=== PATIENT | female | born 1995 | race African-American/Black ===

== ENCOUNTER 2025-03-28 09:13 | Emergency (ER) | payer MEDICAID ==
[~2025-03-28] VITALS: Ht 162.6 cm; Wt 70.3 kg
[2025-03-28 09:25] VITALS: BP 114/60; PULSE 131; RESP 18; TEMP 99.3; O2SAT 98
[2025-03-28] MEDS ORDERED: NS 1000ML 1,000 ML ONE ×2 (09:39→10:14)
[2025-03-28] MEDS: NS 1000ML 1,000 ML STA ×2 (09:42→10:18)
[2025-03-28 09:48] LABS: BASOPHIL # 0.0 10^3/uL (0.0-0.1); BASOPHIL % 0.1 % (0.1-1.2); EOSINOPHIL # 0.1 10^3/uL (0.0-0.2); EOSINOPHIL % 0.6 % (0.0-5.0); HEMATOCRIT(ML) 27.4 % (36.0-46.0); IG % 0.70 % (0.00-0.50); LYMPHOCYTES # 1.63 10^3/uL1 (1.0-4.8); LYMPHOCYTES % 8.0 % (24.0-44.0); MEAN CORP HGB 20.4 pg (26-34); MEAN CORP HGB CONCENTRATION 29.6 g/dL (33-36.5); MEAN CORP VOLUME 69.0 fL (78-100); MONOCYTES # 1.4 10^3/uL (0.3-0.8); MONOCYTES % 6.7 % (5.0-12.0); NEUTROPHIL # 17.0 10^3/uL (1.8-7.7); NEUTROPHILS % 83.9 % (41.0-85.0); RED BLOOD CELL 3.97 10^6/uL (4.00-5.20); RED CELL DISTRIBUTION WIDTH 20.1 % (11.5-14.5); WHITE BLOOD CELL 20.3 10^3/uL (4.5-11.0)
[2025-03-28 10:01] LABS: LEUKOCYTE ESTERASE ,URINE NEGATIVE (NEGATIVE); NITRATE,URINE NEGATIVE (NEGATIVE)
[2025-03-28 10:04] LABS: INR 1.0; PROTHROMBIN PROTIME 10.1 SEC (9.3-11.6)
[2025-03-28 10:05] LABS: APPEARANCE,URINE CLOUDY; UA COLOR RED
[2025-03-28 10:07] LABS: UA COMMENT YES
[2025-03-28] MEDS ORDERED: NS 100ML 100 ML IV ONE (10:14)
[2025-03-28] MEDS ORDERED: OFIRMEV 100 ML IV ONE (10:15)
[2025-03-28 10:16] LABS: ALANINE AMINOTRANSFERASE(ML) 16 U/L (12-78); ALBUMIN(ML) 2.8 g/dL (3.4-5.0); CREATININE SERUM 0.94 mg/dL (0.59-1.40); EST GFR, NON-AA 70.9 (>/=60)
[2025-03-28 10:18] LABS: TROPONIN I HIGH SENSITIVITY < 4 ng/L (0-50)
[2025-03-28] MEDS: ZOSYN 3.375 GM 3.375 GM in NS 100ML 100 ML IV STA (10:18)
[2025-03-28] MEDS: OFIRMEV 100 ML IV STA (10:18)
[2025-03-28 10:39] VITALS: BP 108/64; PULSE 105; RESP 18; O2SAT 99
[2025-03-28] MEDS ORDERED: KLOR-CON PO ONE (10:40)
[2025-03-28] MEDS: KLOR-CON PO STA (10:43)
[2025-03-28 11:35] VITALS: BP 112/68; PULSE 101; RESP 18; O2SAT 97
[2025-03-28 12:34] VITALS: BP 104/62; PULSE 98; RESP 18; O2SAT 99
[2025-03-28 13:40] VITALS: BP 119/59; PULSE 98; RESP 18; O2SAT 98
[2025-03-28] MEDS ORDERED: VANCOMYCIN 1.5 GM/300 ML BAG 300 ML IV ONE (14:32)
[2025-03-28 14:39] VITALS: BP 122/69; PULSE 79; RESP 18; O2SAT 97
[2025-03-28] MEDS: VANCOMYCIN 1.5 GM/300 ML BAG 300 ML IV STA (14:39)
== END 2025-03-28 14:51 | disposition short-term general hospital (02) ==
LOC: ER 09:13
DX: O03.37 Sepsis following incomplete spontaneous abortion (principal); A41.9 Sepsis, unspecified organism; O99.011 Anemia complicating pregnancy, first trimester; Z3A.01 Less than 8 weeks gestation of pregnancy
CPT/HCPCS: 99291; 96365; 76801; 96361; 96375; 99292; 96368; 71045; 76817; 80053; 85025; 86677; 36415; 84484; 87040 ×2; 83605; 81001; 83690; 85610; 85730; 86900; 84703; 84702; 93005; J7030 ×2; J0131; J3490; J2543